=== PATIENT | male | born 1950 | race Asian ===

== ENCOUNTER 2017-07-04 08:33 | Day surgery (SDC) | payer BC ==
[2017-07-04] MEDS ORDERED: PROPOFOL 20 ML (09:19)
[2017-07-04] MEDS ORDERED: FENTAnyl 50 MCG/ML VIAL (09:20)
[2017-07-04] MEDS ORDERED: MIDAZOLAM 1 MG/ML 2 ML INJ (09:20)
== END 2017-07-04 10:18 | disposition home or self-care (01) ==
LOC: GIL 08:33
DX: Z12.11 Encounter for screening for malignant neoplasm of colon (principal); K57.90 Diverticulosis of intestine, part unspecified, without perforation or abscess without bleeding; K64.8 Other hemorrhoids; I10 Essential (primary) hypertension; Z86.73 Personal history of transient ischemic attack (TIA), and cerebral infarction without residual deficits; E11.9 Type 2 diabetes mellitus without complications
CPT/HCPCS: 45378; 82962